=== PATIENT | male | born 1975 | race Caucasian/White ===

== ENCOUNTER 2017-10-22 13:14 | Emergency (ER) | payer SELFPAY ==
[~2017-10-22] VITALS: Ht 177.8 cm; Wt 86.2 kg
[2017-10-22 13:52] VITALS: BP 127/77
--- NOTE | 2017-10-22 14:13 | PHYS DOC ---
Past History Past Medical History: No Pertinent History, Other Past Surgical History: No Surgical History Smoking: Cigarettes Alcohol Use: None Drug Use: None Adult General Chief Complaint Chief Complaint: UPPER EXTREMITY INJURY HPI HPI 42-year-old right-handed male patient states he had an accidental fall from a standing position last night injured his right hand. Patient complaining of pain in his hand and wrist and elbow and shoulder and rated his pain 9/10. Patient denies other injuries and loss of consciousness or focal neuro deficit. Review of Systems Review of Systems Constitutional: Denies fever or chills [] Eyes: Denies change in visual acuity, redness, or eye pain [] HENT: Denies nasal congestion or sore throat [] Respiratory: Denies cough or shortness of breath [] Cardiovascular: No additional information not addressed in HPI [] GI: Denies abdominal pain, nausea, vomiting, bloody stools or diarrhea [] : Denies dysuria or hematuria [] Musculoskeletal: Denies back pain, reports joint pain [] Integument: Denies rash , skin lesions [] Neurologic: Denies headache, focal weakness or sensory changes [] Endocrine: Denies polyuria or polydipsia [] All other systems were reviewed and found to be within normal limits, except as documented in this note. Allergies Allergies Allergies Coded Allergies Type Severity Reaction Last Updated Verified No Known Drug Allergies 10/22/17 No Physical Exam Physical Exam Constitutional: Well nourished, mild distress, non-toxic appearance. [] HENT: Normocephalic, atraumatic, bilateral external ears normal, oropharynx moist, no oral exudates, nose normal. [] Eyes: PERRLA, EOMI, conjunctiva normal, no discharge. [] Neck: Normal range of motion, no tenderness, supple, no stridor. [] Cardiovascular:Heart rate regular rhythm, no murmur [] Lungs & Thorax: Bilateral breath sounds clear to auscultation [] Extremities: Right hand with tenderness in second metatarsal and edema and contusion without deformity or limited range of motion or neurovascular deficit Neurologic: Alert and oriented X 3, normal motor function, normal sensory function, no focal deficits noted. [] Psychologic: Affect normal, judgement normal, mood normal. [] Current Patient Data Vital Signs Vital Signs Date Time Temp Pulse Resp B/P (MAP) Pulse Ox O2 Delivery O2 Flow Rate FiO2 10/22/17 13:20 98.7 85 16 97 Room Air EKG EKG [] Radiology/Procedures Radiology/Procedures [] [address] [address] IMAGING REPORT Signed PATIENT: RAJ CONTRERAS ACCOUNT: [id number] : 1975 LOCATION: ER AGE: 42 SEX: M EXAM STATUS: REG ER ORD. PHYSICIAN: MARIBELL WILSON MD REASON: injury PROCEDURE: HAND RIGHT 3V Examination: 3 views of the right hand History: History of injury right hand Comparison: None available Findings: The alignment of the metacarpophalangeals, interphalangeal joints grossly appears unremarkable. There is no acute fracture identified. Impression: No acute osseous findings. DICTATED AND SIGNED BY: LENY PATHAK MD DATE: 10/22/17 1416 CC: MARIBELL WILSON MD; PCP,NO ~ Course & Med Decision Making Course & Med Decision Making Pertinent Imaging studies reviewed. (See chart for details) Evaluation of patient in ER showed 42-year-old male patient with a fall last night and injury to his right hand and wrist. Patient has contusion of right hand is unremarkable except plan to apply Abiodun wrap and discharge patient home with diagnose of hand contusion. discharge: I've spoken with the patient and/or caregivers. I've explained the patient's condition, diagnosis and treatment plan based on information available to me at this time. I've answered the patient's and/or caregivers questions and addressed any concerns. The patient and/or caregivers have a good understanding the patient's diagnosis, condition and treatment plan as can be expected at this point. Vital signs have been stabilized. The patient's condition is stable for discharge from the emergency department. The patient will pursue further outpatient evaluation with her primary care provider or other designated consulting physician as outlined in the discharge instructions. Patient and/or caregivers are agreeable to this plan of care and follow-up instructions have been explained in detail. The patient and/or caregivers have received these instructions in written format and expressed understanding of these discharge instructions. The patient and her caregivers are aware that if any significant change in condition or worsening of symptoms should prompt him to immediately return to this of the closest emergency department. If an emergent department is not readily available I would encourage him to call 911. [] Dragon Disclaimer Dragon Disclaimer This electronic medical record was generated, in whole or in part, using a voice recognition dictation system. Departure Departure: Impression: Primary Impression: Hand contusion Additional Impressions: Tobacco abuse Tobacco abuse counseling Disposition: HOME, SELF-CARE (At 1457) Condition: IMPROVED Referrals: PCP,NO (PCP) Patient Instructions: Contusion, Smoking Cessation Additional Instructions: Apply ice on affect. Area Follow-up with your primary care physician in 3-5 days Return to ER if not getting better Scripts Hydrocodone Bit/Acetaminophen (NORCO 5-325 TABLET) 1 Each Tablet 1 TAB PO PRN Q6HRS Y for PAIN, #10 TAB 0 Refills Prov: MARIBELL WILSON MD 10/22/17 Problem Qualifiers MARIBELL WILSON MD Oct 22, 2017 14:13
--- NOTE | 2017-10-22 14:22 | RAD ---
Examination: 3 views of the right hand History: History of injury right hand Comparison: None available Findings: The alignment of the metacarpophalangeals, interphalangeal joints grossly appears unremarkable. There is no acute fracture identified. Impression: No acute osseous findings.
[2017-10-22] MEDS ORDERED: HYDROcodone/APAP 5/325MG 1 TAB TABLET PO ONE (14:30)
[2017-10-22] MEDS ORDERED: HYDR-971 PO (14:58)
== END 2017-10-22 15:04 | disposition home or self-care (01) ==
LOC: ER 13:14
DX: S60.221A Contusion of right hand, initial encounter (principal); F17.210 Nicotine dependence, cigarettes, uncomplicated; W19.XXXA Unspecified fall, initial encounter; Y93.89 Activity, other specified; Y99.8 Other external cause status; Y92.89 Other specified places as the place of occurrence of the external cause
CPT/HCPCS: 73130; 99284

== ENCOUNTER 2017-11-02 10:10 | Emergency (ER) | payer SELFPAY ==
[~2017-11-02 10:10] MED LIST: HYDR-971 PO
[2017-11-02 10:15] VITALS: BP 140/77
[2017-11-02] MEDS ORDERED: GUAI1TBM10 PO (10:38)
[2017-11-02] MEDS ORDERED: ALBU6.7H IH (10:38)
[2017-11-02] MEDS ORDERED: IBUP200T44 PO (10:38)
[2017-11-02] MEDS ORDERED: AZIT250T6 PO (10:38)
--- NOTE | 2017-11-02 10:38 | PHYS DOC ---
Past History Past Medical History: No Pertinent History, Other Past Surgical History: No Surgical History Smoking: Cigarettes, Greater than 1 pack/day Alcohol Use: None Drug Use: None Adult General Chief Complaint Chief Complaint: FEVER HPI HPI This patient is a pleasant 42-year-old single male who lives with his mother presents with a 2 day history of cough or any nose congestion. Patient is a pack-a-day smoker and his mother did come down with a cold over the last several days now he has a same symptoms. Patient says he "" just doesn't feel well he denies, shortness of breath, chest pain, sore throat, problems swallowing, problems breathing, ear pain, ear drainage, hearing loss he's having significant rhinorrhea with nonproductive cough and subjective fevers and chills with nothing measured. She does also complain of mild myalgias he believes he might have "" flu is mild pain is mild at best is not taking any medications to treat his symptoms. Review of Systems Review of Systems Constitutional: Positive for subjective fevers and chills[] Eyes: Denies change in visual acuity, redness, or eye pain [] HENT: Positive for nasal congestion negative for sore throat[] Respiratory: Positive for cough negative shortness of breath or wheezing[] Cardiovascular: No additional information not addressed in HPI [] GI: Denies abdominal pain, nausea, vomiting, bloody stools or diarrhea [] : Denies dysuria or hematuria [] Musculoskeletal: Positive for bodily aches and pains and myalgias[] Integument: Denies rash or skin lesions [] Neurologic: Denies headache, focal weakness or sensory changes [] Endocrine: Denies polyuria or polydipsia [] All other systems were reviewed and found to be within normal limits, except as documented in this note. Allergies Allergies Allergies Coded Allergies Type Severity Reaction Last Updated Verified No Known Drug Allergies 10/22/17 No Physical Exam Physical Exam Vital signs recorded the chart at this time noted hypertension otherwise normal. Constitutional: Well developed, well nourished, no acute distress, non-toxic appearance. [] HENT: Normocephalic, atraumatic, bilateral external ears normal, oropharynx moist mild erythema, no tonsillar hypertrophy no oral exudates, nose clear rhinorrhea TMs are clear bilaterally. [] Eyes: PERRLA, EOMI, conjunctiva normal, no discharge. [] Neck: Normal range of motion, no tenderness, supple, no stridor. No anterior lymphadenopathy [] Cardiovascular:Heart rate regular rhythm, no murmur [] Lungs & Thorax: Bilateral breath sounds clear to auscultation no wheezes rhonchi rales or crackles no retractions or sensory muscle use. [] Skin: Warm, dry, no erythema, no rash. [] Extremities: No tenderness, no cyanosis, no clubbing, ROM intact, no edema. [] Neurologic: Alert and oriented X 3, normal motor function, normal sensory function, no focal deficits noted. [] Psychologic: Patient seems somewhat anxious but mood stabilizer conversation[] EKG EKG [] Radiology/Procedures Radiology/Procedures [] Course & Med Decision Making Course & Med Decision Making Pertinent Labs and Imaging studies reviewed. (See chart for details) Patient is a pleasant otherwise healthy 42-year-old male who does smoke a pack a day. Initial presentation of cough and runny nose congestion and subjective fevers and chills concerning for possible viral URI. Because patient is a smoker although he has no wheezing on physical exam I encouraged him to quit this will put him in increased risk for pulmonary diseases. He has sick contacts at home with similar symptoms but because he is a smoker with likely some chronic disease of his lungs opened place him on azithromycin and given an inhaler for treatment of his cough and encouraged him to use Tylenol Motrin and guaifenesin for his other symptoms. discharge: I've spoken with the patient and/or caregivers. I've explained the patient's condition, diagnosis and treatment plan based on information available to me at this time. I've answered the patient's and/or caregivers questions and addressed any concerns. The patient and/or caregivers have a good understanding the patient's diagnosis, condition and treatment plan as can be expected at this point. Vital signs have been stabilized. The patient's condition is stable for discharge from the emergency department. The patient will pursue further outpatient evaluation with her primary care provider or other designated consulting physician as outlined in the discharge instructions. Patient and/or caregivers are agreeable to this plan of care and follow-up instructions have been explained in detail. The patient and/or caregivers have received these instructions in written format and expressed understanding of these discharge instructions. The patient and her caregivers are aware that if any significant change in condition or worsening of symptoms should prompt him to immediately return to this of the closest emergency department. If an emergent department is not readily available I would encourage him to call 911. Indigo Disclaimer Indigo Disclaimer This electronic medical record was generated, in whole or in part, using a voice recognition dictation system. Departure Departure: Impression: Primary Impression: Bronchitis Additional Impression: Smoking Disposition: 01 HOME, SELF-CARE Condition: IMPROVED Referrals: PCP,NO (PCP) Patient Instructions: Acute Bronchitis, Smoking Hazards, Smoking, You Can Quit , [id number] Additional Instructions: discharge: I've spoken with the patient and/or caregivers. I've explained the patient's condition, diagnosis and treatment plan based on information available to me at this time. I've answered the patient's and/or caregivers questions and addressed any concerns. The patient and/or caregivers have a good understanding the patient's diagnosis, condition and treatment plan as can be expected at this point. Vital signs have been stabilized. The patient's condition is stable for discharge from the emergency department. The patient will pursue further outpatient evaluation with her primary care provider or other designated consulting physician as outlined in the discharge instructions. Patient and/or caregivers are agreeable to this plan of care and follow-up instructions have been explained in detail. The patient and/or caregivers have received these instructions in written format and expressed understanding of these discharge instructions. The patient and her caregivers are aware that if any significant change in condition or worsening of symptoms should prompt him to immediately return to this of the closest emergency department. If an emergent department is not readily available I would encourage him to call 911. Scripts Albuterol Sulfate (PROVENTIL HFA INHALER) 6.7 Gm Hfa.aer.ad 1-2 PUFF IH PRN Q4HRS Y for WHEEZING for 7 Days, INHALER 0 Refills Please dispense inhaler with a spacer Prov: KEN BANKS MD 11/02/17 Ibuprofen (MOTRIN IB) 200 Mg Tablet 400 MG PO QID for 7 Days, #28 TAB Prov: KEN BANKS MD 11/02/17 Guaifenesin/Dextromethorphan (MUCINEX DM ER 1,200-60 MG TAB) 1 Each Tbmp.12hr 1 TAB PO BID, #20 TAB 1 Refill Prov: KEN BANKS MD 11/02/17 Azithromycin (AZITHROMYCIN TABLET) 250 Mg Tablet 250 MG PO DAILY for ANTI-BIOTIC for 5 Days, #5 TAB 0 Refills Please take 2 times the first day Please take one tablet day 2 through 5. Prov: KEN BANKS MD 11/02/17 Problem Qualifiers KEN BANKS MD Nov 02, 2017 10:38
[2017-11-02 10:51] LABS: INFLUENZA A PATIENT NEGATIVE (NEGATIVE); INFLUENZA B PATIENT POSITIVE (NEGATIVE)
== END 2017-11-02 10:45 | disposition home or self-care (01) ==
LOC: ER 10:10
DX: J40 Bronchitis, not specified as acute or chronic (principal); F17.210 Nicotine dependence, cigarettes, uncomplicated
CPT/HCPCS: 87804; 99284